=== PATIENT | male | born 1995 | race Caucasian/White ===

== ENCOUNTER 2023-12-22 12:41 | Emergency (ER) | payer OTHER ==
--- NOTE | 2023-12-22 12:54 | ED ---
Male Urogenital HPI - General Stated complaint: STD testing Time Seen by Provider: 12/22/23 12:53 Source: patient, RN notes reviewed Mode of arrival: ambulatory Limitations: no limitations - History of Present Illness Initial comments: Patient is a 28-year-old male presented to ER with chief complaint of STD exposure. Patient states he was treated for syphilis in May and believes he has it again. He states he has been having recent headaches and believes he has a rash on his back. Denies any fevers, chills, night sweats, chest pain, shortness of breath, urinary complaints, penile discharge. - Related Data Allergies Allergy/AdvReac Type Severity Reaction Status Date / Time No Known Allergies Allergy Verified 12/22/23 13:59 Review of Systems ROS Statement: Those systems with pertinent positive or pertinent negative responses have been documented in the HPI. ROS Other: All systems not noted in ROS Statement are negative. General Exam - General Exam Comments Initial Comments: Visual Physical Exam Vital signs reviewed General: Well-appearing, nontoxic, no acute distress. Head: Normocephalic, atraumatic Eyes: PERRLA, EOMI ENT: Airway patent Chest: Nonlabored breathing Skin: No visual rash, normal skin tone Neuro: Alert and oriented 3 Musculoskeletal: No gross abnormalities General appearance: alert, in no apparent distress Head exam: Present: atraumatic, normocephalic, normal inspection Eye exam: Present: normal appearance, PERRL, EOMI. Absent: scleral icterus, conjunctival injection, periorbital swelling Respiratory exam: Present: normal lung sounds bilaterally. Absent: respiratory distress, wheezes, rales, rhonchi, stridor Cardiovascular Exam: Present: regular rate, normal rhythm, normal heart sounds. Absent: systolic murmur, diastolic murmur, rubs, gallop, clicks Neurological exam: Present: alert, oriented X3, CN II-XII intact Psychiatric exam: Present: normal affect, normal mood Skin exam: Present: warm, dry, intact, normal color. Absent: rash Course Vital Signs 12/22/23 12/22/23 13:55 14:57 Temperature 98.8 F 98.1 F Pulse Rate 93 90 Respiratory 18 18 Rate Blood Pressure 135/85 130/82 O2 Sat by Pulse 96 97 Oximetry Medical Decision Making - Medical Decision Making I performed the quick note portion of this chart. Electronically signed by Carlitos Guerra PA-C Was pt. sent in by a medical professional or institution ([facility] Thapa, HOME EXTENSION AGENT, urgent care, hospital, or halfway...) When possible be specific @ -No Did you speak to anyone other than the patient for history (EMS, parent, family, police, friend...)? What history was obtained from this source @ -No Did you review nursing and triage notes (agree or disagree)? Why? @ -I reviewed and agree with nursing and triage notes Were old charts reviewed (outside hosp., previous admission, EMS record, old EKG, old radiological studies, urgent care reports/EKG's, halfway records)? Report findings @ -No old charts were reviewed Differential Diagnosis (chest pain, altered mental status, abdominal pain women, abdominal pain men, vaginal bleeding, weakness, fever, dyspnea, syncope, headache, dizziness, GI bleed, back pain, seizure, CVA, palpatations, mental health, musculoskeletal)? @ -Chlamydia, gonorrhea, trichomonas, bacterial vaginosis, syphilis, HPV this list number to be all-inclusive EKG interpreted by me (3pts min.). @ -None X-rays interpreted by me (1pt min.). @ -None done CT interpreted by me (1pt min.). @ -None done U/S interpreted by me (1pt. min.). @ -None done What testing was considered but not performed or refused? (CT, X-rays, U/S, labs)? Why? @ -None What meds were considered but not given or refused? Why? @ -None Did you discuss the management of the patient with other professionals (professionals i.e. CHAR Thapa, HOME EXTENSION AGENT, lab, RT, psych nurse, manager social work, mash filter press operator, teacher, public health officer, social work case manager)? Give summary @ -No Was smoking cessation discussed for >3mins.? @ -No Was critical care preformed (if so, how long)? @ -No Were there social determinants of health that impacted care today? How? (Homelessness, low income, unemployed, alcoholism, drug addiction, transportation, low edu. Level, literacy, decrease access to med. care, fdc, rehab)? @ -No Was there de-escalation of care discussed even if they declined (Discuss DNR or withdrawal of care, Hospice)? DNR status @ -No What co-morbidities impacted this encounter? (DM, HTN, Smoking, COPD, CAD, Cancer, CVA, ARF, Chemo, Hep., AIDS, mental health diagnosis, sleep apnea, morbid obesity)? @ -None Was patient admitted / discharged? Hospital course, mention meds given and route, prescriptions, significant lab abnormalities, going to OR and other pertinent info. @ -Discharge. Patient is a 28-year-old male presenting to the ER with chief complaint of STD exposure. History and physical exam completed. Vitals stable. Patient in no signs of acute distress. Nontoxic-appearing. Patient's lung sounds clear to auscultation bilaterally. Syphilis, gonorrhea, committee and trichomonas testing completed. Patient received IM penicillin for prophylactic treatment of syphilis. Return parameters discussed. Patient discharged stable condition with follow-up to PCP. Patient expressed understanding and agreement with care plan. Undiagnosed new problem with uncertain prognosis? @ -No Drug Therapy requiring intensive monitoring for toxicity (Heparin, Nitro, Insulin, Cardizem)? @ -No Were any procedures done? @ -No Diagnosis/symptom? @ -STD exposure Acute, or Chronic, or Acute on Chronic? @ -Acute Uncomplicated (without systemic symptoms) or Complicated (systemic symptoms)? @ -Uncomplicated Side effects of treatment? @ -No Exacerbation, Progression, or Severe Exacerbation? @ -No Poses a threat to life or bodily function? How? (Chest pain, [place], [place], pneumonia, PE, COPD, DKA, ARF, appy, cholecystitis, CVA, Diverticulitis, Homicidal, Booth icidal, threat to staff... and all critical care pts) @ -Yes, untreated STDs can lead to infertility. Disposition Clinical Impression: STD exposure Disposition: HOME SELF-CARE Condition: Stable Instructions (If sedation given, give patient instructions): Sexually Transmitted Diseases (ED), Safe Sex Practices (ED) Additional Instructions: Results will be called to you. Please follow-up with PCP. Notify all partners. Return to the ER for any new or worsening symptoms. Is patient prescribed a controlled substance at d/c from ED?: No Referrals: Marci Lara DO [Primary Care Provider] - 1-2 days Time of Disposition: 13:34
[2023-12-22 14:15] VITALS: RESP 18
[2023-12-22] MEDS: PENICILLIN G BENZATHINE 1,200,000 UNIT/2 ML SYRINGE IM STA (14:50)
[2023-12-22 15:20] VITALS: BP 130/82; PULSE 90; TEMP 98.1
[2023-12-23 14:37] LABS: C. trachomatis,PCR Negative (Negative)
[2023-12-23 14:42] LABS: N. gonorrhoeae,PCR Negative (Negative)
== END 2023-12-22 14:58 | disposition home or self-care (01) ==
LOC: EC 12:41
DX: Z20.2 Contact with and (suspected) exposure to infections with a predominantly sexual mode of transmission (principal)
CPT/HCPCS: 87491; 87591; 99283; J0561

== ENCOUNTER 2024-01-26 19:59 | Emergency (ER) | payer OTHER ==
[2024-01-26 20:26] VITALS: TEMP 98.3
[2024-01-26] MEDS ORDERED: LORazepam 2 MG/ML INJ IV PRN ×2 (20:45)
[2024-01-26] MEDS: LORazepam 2 MG/ML INJ IV PRN (20:58)
--- NOTE | 2024-01-26 20:59 | ED ---
Alcohol HPI - General Chief Complaint: Alcohol Stated Complaint: Alochol Detox Time Seen by Provider: 01/26/24 20:39 Source: patient Mode of arrival: ambulatory Limitations: no limitations - History of Present Illness Initial Comments: 28-year-old male with history of alcohol use disorder presenting with chief complaint of "I do not feel well". Patient normally drinks a fifth of liquor per day. His last drink was 2 hours ago. He admits to nausea, vomiting, headache, fatigue, body aches. Denies chest pain or difficulty breathing. He has some abdominal soreness. No fevers. - Related Data Previous Rx's Medication Instructions Recorded Ibuprofen [Motrin] 800 mg PO ONCE #1 tab 05/05/16 Ibuprofen [Motrin] 800 mg PO Q8HR PRN #20 tab 05/05/16 chlordiazePOXIDE HCl [Librium] 25 mg PO QID #20 capsule 05/05/16 Allergies Allergy/AdvReac Type Severity Reaction Status Date / Time No Known Allergies Allergy Verified 01/26/24 20:19 Review of Systems ROS Statement: Those systems with pertinent positive or pertinent negative responses have been documented in the HPI. ROS Other: All systems not noted in ROS Statement are negative. Past Medical History Past Medical History: No Reported History Additional Past Medical History / Comment(s): ALCOHOL ABUSE History of Any Multi-Drug Resistant Organisms: MRSA Date of last positivie culture/infection: 2019 MDRO Source:: leg Past Surgical History: No Surgical Hx Reported Past Psychological History: Anxiety, No Psychological Hx Reported Smoking Status: Current every day smoker Past Alcohol Use History: Abuse, Daily, Heavy Past Drug Use History: Cocaine, Marijuana, Methamphetamine - Past Family History Mother Family Medical History: Hypertension General Exam Limitations: no limitations General appearance: alert, in no apparent distress Head exam: Present: atraumatic, normocephalic Eye exam: Present: normal appearance, EOMI Neck exam: Present: normal inspection Respiratory exam: Present: normal lung sounds bilaterally. Absent: respiratory distress, wheezes, rales, rhonchi, stridor Cardiovascular Exam: Present: normal rhythm, tachycardia, normal heart sounds. Absent: systolic murmur, diastolic murmur, rubs, gallop, clicks Neurological exam: Present: alert, oriented X3 Psychiatric exam: Present: normal affect, normal mood Skin exam: Present: warm, dry Course Vital Signs 01/26/24 01/26/24 01/26/24 20:17 21:08 21:56 Temperature 98.3 F Pulse Rate 124 H 117 H 109 H Respiratory 18 18 16 Rate Blood Pressure 149/97 146/109 163/108 O2 Sat by Pulse 96 96 98 Oximetry 01/26/24 23:50 Temperature Pulse Rate 92 Respiratory 18 Rate Blood Pressure 142/99 O2 Sat by Pulse 99 Oximetry Medical Decision Making - Medical Decision Making Was pt. sent in by a medical professional or institution (, CHAR, CHANGE ATTENDANT, urgent care, hospital, or group home...) When possible be specific @ -No Did you speak to anyone other than the patient for history (EMS, parent, family, police, friend...)? What history was obtained from this source @ -No Did you review nursing and triage notes (agree or disagree)? Why? @ -I reviewed and agree with nursing and triage notes Were old charts reviewed (outside hosp., previous admission, EMS record, old EKG, old radiological studies, urgent care reports/EKG's, group home records)? Report findings @ -No old charts were reviewed Differential Diagnosis (chest pain, altered mental status, abdominal pain women, abdominal pain men, vaginal bleeding, weakness, fever, dyspnea, syncope, headache, dizziness, GI bleed, back pain, seizure, CVA, palpatations, mental health, musculoskeletal)? @ -Differential includes alcohol withdrawal, COVID, influenza, other viral sy ndrome, this is not an all-inclusive list EKG interpreted by me (3pts min.). @ -As above X-rays interpreted by me (1pt min.). @ -None done CT interpreted by me (1pt min.). @ -None done U/S interpreted by me (1pt. min.). @ -None done What testing was considered but not performed or refused? (CT, X-rays, U/S, labs)? Why? @ -None What meds were considered but not given or refused? Why? @ -None Did you discuss the management of the patient with other professionals (professionals i.e. CHAR Thapa, CHANGE ATTENDANT, lab, RT, psych nurse, social worker clinical, echocardiographer, teacher, booking officer, shelter case manager)? Give summary @ -I spoke with Dr. Zapata who accepted admission Was smoking cessation discussed for >3mins.? @ -No Was critical care preformed (if so, how long)? @ -No Were there social determinants of health that impacted care today? How? (Homelessness, low income, unemployed, alcoholism, drug addiction, [place] sportation, low edu. Level, literacy, decrease access to med. care, alf, rehab)? @ -Alcohol use disorder Was there de-escalation of care discussed even if they declined (Discuss DNR or withdrawal of care, Hospice)? DNR status @ -No What co-morbidities impacted this encounter? (DM, HTN, Smoking, COPD, CAD, Cancer, CVA, ARF, Chemo, Hep., AIDS, mental health diagnosis, sleep apnea, morbid obesity)? @ -None Was patient admitted / discharged? Hospital course, mention meds given and route, prescriptions, significant lab abnormalities, going to OR and other pertinent info. @ -28-year-old male with history of alcohol use disorder presenting for alcohol withdrawal. Normally drinks a fifth of liquor per day. His last drink was about 2 hours prior to arrival. History and physical exam are conducted. Patient has a AST of 539 and ALT of 825, he also has a lipase of 342. This is to be expected with his chronic alcohol use. Urine toxicology positive for marijuana. He is negative for influenza, RSV, and COVID. I spoke with the patient regarding his goals. He tells me that he would like to go to rehab and it is his goal to stop drinking. He is placed on CIWA protocol. He will be adm itted. I discussed this case with my attending Dr. Smith I am told that later after admission the patient signed out AMA Undiagnosed new problem with uncertain prognosis? @ -No Drug Therapy requiring intensive monitoring for toxicity (Heparin, Nitro, Insulin, Cardizem)? @ -No Were any procedures done? @ -No Diagnosis/symptom? @ -Alcohol withdrawal Acute, or Chronic, or Acute on Chronic? @ -Acute Uncomplicated (without systemic symptoms) or Complicated (systemic symptoms)? @ -Complicated Side effects of treatment? @ -No Exacerbation, Progression, or Severe Exacerbation? @ -No Poses a threat to life or bodily function? How? (Chest pain, [place], [place], pneumonia, PE, COPD, DKA, ARF, appy, cholecystitis, CVA, Diverticulitis, Homicidal, Suicidal, threat to staff... and all critical care pts) @ -Potentially - Lab Data Result diagrams: 01/26/24 21:05 01/26/24 21:05 Lab Results 01/26/24 01/26/24 01/26/24 Range/Units 21:05 21:05 21:06 WBC 9.3 (3.8-10.6) k/uL RBC 5.50 (4.30-5.90) m/uL Hgb 18.2 H (13.0-17.5) gm/dL Hct 54.8 H (39.0-53.0) % MCV 99.6 (80.0-100.0) fL MCH 33.1 (25.0-35.0) pg MCHC 33.2 (31.0-37.0) g/dL RDW 12.8 (11.5-15.5) % Plt Count 222 (150-450) k/uL MPV 8.6 Neutrophils % 66 % Lymphocytes % 23 % Monocytes % 6 % Eosinophils % 0 % Basophils % 1 % Neutrophils # 6.2 (1.3-7.7) k/uL Lymphocytes # 2.1 (1.0-4.8) k/uL Monocytes # 0.6 (0-1.0) k/uL Eosinophils # 0.0 (0-0.7) k/uL Basophils # 0.1 (0-0.2) k/uL Sodium 141 (137-145) mmol/L Potassium 4.1 (3.5-5.1) mmol/L Chloride 102 (98-107) mmol/L Carbon Dioxide 22 (22-30) mmol/L Anion Gap 17 mmol/L BUN 5 L (9-20) mg/dL Creatinine 0.85 (0.66-1.25) mg/dL Est GFR (CKD-EPI)AfAm >90 (>60 ml/min/1.73 sqM) Est GFR (CKD-EPI)NonAf >90 (>60 ml/min/1.73 sqM) Glucose 176 H (74-99) mg/dL Calcium 9.7 (8.4-10.2) mg/dL Phosphorus 3.7 (2.5-4.5) mg/dL Magnesium 2.3 (1.6-2.3) mg/dL Total Bilirubin 0.7 (0.2-1.3) mg/dL AST 539 H (17-59) U/L ALT 825 H (4-49) U/L Alkaline Phosphatase 66 (38-126) U/L Total Protein 9.1 H (6.3-8.2) g/dL Albumin 5.4 H (3.5-5.0) g/dL Amylase 72 (30-110) U/L Lipase 342 H (23-300) U/L Urine Opiates Screen (NotDetected) Ur Oxycodone Screen (NotDetected) Urine Methadone Screen (NotDetected) Ur Barbiturates Screen (NotDetected) U Tricyclic Antidepress (NotDetected) Ur Phencyclidine Scrn (NotDetected) Ur Amphetamines Screen (NotDetected) U Methamphetamines Scrn (NotDetected) U Benzodiazepines Scrn (NotDetected) Urine Cocaine Screen (NotDetected) U Marijuana (THC) Screen (NotDetected) Influenza Type A (PCR) Not Detected (Not Detectd) Influenza Type B (PCR) Not Detected (Not Detectd) RSV (PCR) Not Detected (Not Detectd) SARS-CoV-2 (PCR) Not Detected (Not Detectd) 01/26/24 Range/Units 21:53 WBC (3.8-10.6) k/uL RBC (4.30-5.90) m/uL Hgb (13.0-17.5) gm/dL Hct (39.0-53.0) % MCV (80.0-100.0) fL MCH (25.0-35.0) pg MCHC (31.0-37.0) g/dL RDW (11.5-15.5) % Plt Count (150-450) k/uL MPV Neutrophils % % Lymphocytes % % Monocytes % % Eosinophils % % Basophils % % Neutrophils # (1.3-7.7) k/uL Lymphocytes # (1.0-4.8) k/uL Monocytes # (0-1.0) k/uL Eosinophils # (0-0.7) k/uL Basophils # (0-0.2) k/uL Sodium (137-145) mmol/L Potassium (3.5-5.1) mmol/L Chloride (98-107) mmol/L Carbon Dioxide (22-30) mmol/L Anion Gap mmol/L BUN (9-20) mg/dL Creatinine (0.66-1.25) mg/dL Est GFR (CKD-EPI)AfAm (>60 ml/min/1.73 sqM) Est GFR (CKD-EPI)NonAf (>60 ml/min/1.73 sqM) Glucose (74-99) mg/dL Calcium (8.4-10.2) mg/dL Phosphorus (2.5-4.5) mg/dL Magnesium (1.6-2.3) mg/dL Total Bilirubin (0.2-1.3) mg/dL AST (17-59) U/L ALT (4-49) U/L Alkaline Phosphatase (38-126) U/L Total Protein (6.3-8.2) g/dL Albumin (3.5-5.0) g/dL Amylase (30-110) U/L Lipase (23-300) U/L Urine Opiates Screen Not Detected (NotDetected) Ur Oxycodone Screen Not Detected (NotDetected) Urine Methadone Screen Not Detected (NotDetected) Ur Barbiturates Screen Not Detected (NotDetected) U Tricyclic Antidepress Not Detected (NotDetected) Ur Phencyclidine Scrn Not Detected (NotDetected) Ur Amphetamines Screen Not Detected (NotDetected) U Methamphetamines Scrn Not Detected (NotDetected) U Benzodiazepines Scrn Not Detected (NotDetected) Urine Cocaine Screen Not Detected (NotDetected) U Marijuana (THC) Screen Detected H (NotDetected) Influenza Type A (PCR) (Not Detectd) Influenza Type B (PCR) (Not Detectd) RSV (PCR) (Not Detectd) SARS-CoV-2 (PCR) (Not Detectd) Disposition Clinical Impression: Alcohol withdrawal syndrome Disposition: ADMITTED IP TO THIS HOSP Condition: Fair
[2024-01-26] MEDS: KETOROLAC 15 MG/ML 1 ML VIAL IVP STA (21:00)
[2024-01-26] MEDS: SODIUM CHLORIDE 0.9% 1,000 ML IV STA (21:01)
[2024-01-26] MEDS: ONDANSETRON 4 MG/2 ML VIAL IVP STA (21:02)
[2024-01-26 21:34] LABS: Basophils # (A) 0.1 k/uL (0-0.2); Basophils % (A) 1 %; Eosinophils % (A) 0 %; HCT 54.8 % (39.0-53.0); HGB 18.2 gm/dL (13.0-17.5); Lymphocytes # (A) 2.1 k/uL (1.0-4.8); Lymphocytes % (A) 23 %; MCH 33.1 pg (25.0-35.0); MCHC 33.2 g/dL (31.0-37.0); MCV 99.6 fL (80.0-100.0); Mean Platelet Volume 8.6; Monocytes # (A) 0.6 k/uL (0-1.0); Monocytes % (A) 6 %; Neutrophils # (A) 6.2 k/uL (1.3-7.7); Neutrophils % (A) 66 %; Platelet Count 222 k/uL (150-450); RDW 12.8 % (11.5-15.5); WBC 9.3 k/uL (3.8-10.6)
[2024-01-26 22:07] LABS: AST 539 U/L (17-59); African American GFR (CKD) >90 (>60 ml/min/1.73 sqM); Albumin 5.4 g/dL (3.5-5.0); Alkaline Phosphatase 66 U/L (38-126); Amylase 72 U/L (30-110); Anion Gap 17 mmol/L; Blood Urea Nitrogen 5 mg/dL (9-20); Calcium 9.7 mg/dL (8.4-10.2); Carbon Dioxide 22 mmol/L (22-30); Chloride 102 mmol/L (98-107); Glucose 176 mg/dL (74-99); Lipase 342 U/L (23-300); Magnesium 2.3 mg/dL (1.6-2.3); Non-African American GFR(CKD) >90 (>60 ml/min/1.73 sqM); Phosphorus 3.7 mg/dL (2.5-4.5); Potassium 4.1 mmol/L (3.5-5.1); Sodium 141 mmol/L (137-145); Total Bilirubin 0.7 mg/dL (0.2-1.3); Total Protein 9.1 g/dL (6.3-8.2)
[2024-01-26 22:20] LABS: ALT 825 U/L (4-49)
[2024-01-26 22:32] LABS: Amphetamine Screen,Urine Not Detected (NotDetected); Barbiturate Screen,Urine Not Detected (NotDetected); Benzodiazepines Screen,Urine Not Detected (NotDetected); Cocaine Screen,Urine Not Detected (NotDetected); Methadone Screen, Urine Not Detected (NotDetected); Opiate Screen,Urine Not Detected (NotDetected); Oxycodone Screen, Urine Not Detected (NotDetected); Phencyclidine Screen,Urine Not Detected (NotDetected); Tricyclic Antidepressant,Urine Not Detected (NotDetected); Urn Cannabinoid Scrn Detected (NotDetected)
[2024-01-26] MEDS ORDERED: NALOXONE 0.4 MG/ML 1 ML VIAL IV PRN (23:11)
[2024-01-26] MEDS ORDERED: ONDANSETRON 4 MG/2 ML VIAL IVP PRN (23:11)
[2024-01-26] MEDS ORDERED: IBUPROFEN 400 MG TAB PO PRN (23:11)
[2024-01-26] MEDS ORDERED: KETOROLAC 15 MG/ML 1 ML VIAL IVP PRN (23:11)
[2024-01-26] MEDS: MORPHINE SULFATE 2 MG/ML SYRINGE IVP STA (23:14)
[2024-01-26] MEDS: SODIUM CHLORIDE 0.9% 1,000 ML IV SCH (23:30)
[2024-01-26] MEDS: ALPRAZolam 0.5 MG TAB PO STA (23:46)
[2024-01-27] MEDS ORDERED: NICOTINE 21MG/24HR PATCH TRANSDERM STA (00:03)
--- NOTE | 2024-01-27 00:06 | P.HPIM ---
History of Present Illness H&P Date: 01/26/24 Patient is a 28-year-old male with a PMH of EtOH abuse, hep C (chronic), syphilis status post treatment who presents to the emergency room with complaints of alcohol withdrawal. The patient reports that he has been trying to cut down on his alcohol consumption which is currently at a fifth of hard liquor daily as well as a case of beer. He reports a history of alcohol withdrawal seizures. Reports last drink was 2 hours prior to arrival at the emergency room. Currently reports feeling somewhat shaky. Denied experiencing chest discomfort, shortness of breath, fever, chills, cough, nausea, vomiting, abdominal pain, diarrhea. Laboratory evaluation in the emergency room revealed a lipase of 342, AST 539, ALT 25, urine toxicology positive for marijuana, and respiratory viral panel unremarkable. ED documentation reviewed and case discussed with ED provider. Review of systems: Pertinent positives and negatives as discussed in HPI, a complete review of systems was performed and all other systems are negative. Physical examination: Vital signs reviewed General: non toxic, no distress, appears at stated age, normal weight Derm: no unusual rashes/lesions, warm Head: atraumatic, normocephalic, symmetric Eyes: EOMI, no lid lag, anicteric sclera, pupils equal round reactive to light ENT: Nose and ears atraumatic Neck: No cervical lymphadenopathy, trachea midline, supple Mouth: no lip lesion, mucus membranes moist, tongue fasciculations noted Cardiovascular: S1S2 reg, no murmur, positive dorsalis pedis pulse bilateral, no edema Lungs: CTA bilateral, no rhonchi, no rales, no accessory muscle use Abdominal: soft, nontender to palpation, no guarding Ext: muscle strength 5 out of 5 in all 4 extremities grossly, no gross muscle atrophy, no contractures, Neuro: CN II-XI grossly intact, no gross focal neuro deficits, mild outstretched hand tremor Psych: Alert, oriented, appropriate affect Assessment: Alcohol withdrawal Hyperglycemia Transaminitis, likely due to ongoing alcohol abuse Marijuana abuse Chronic conditions: Chronic hep C Imaging: None performed Data Review: Laboratory evaluation in the emergency room revealed a lipase of 342, AST 539, ALT 25, urine toxicology positive for marijuana, and respiratory viral panel unremarkable. Plan: CIWA Protocol with Ativan Cardiac monitoring Check A1c Fall precautions Monitor electrolytes daily Continue with IV fluids with normal saline 75 cc/h Continue with thiamine Monitor LFTs Advised on the importance of cessation from alcohol and marijuana use Advised patient to follow-up with gastroenterology as an outpatient for hep C treatment options DVT prophylaxis: Lovenox subcu The patient is admitted with an anticipated greater than 2 midnight stay for evaluation of alcohol withdrawal CODE STATUS: Full Code Discussed with: Patient Anticipated discharge place: Home Past Medical History Past Medical History: No Reported History Additional Past Medical History / Comment(s): ALCOHOL ABUSE History of Any Multi-Drug Resistant Organisms: MRSA Date of last positivie culture/infection: 2019 MDRO Source:: leg Past Surgical History: No Surgical Hx Reported Past Psychological History: Anxiety, No Psychological Hx Reported Smoking Status: Current every day smoker Past Alcohol Use History: Abuse, Daily, Heavy Past Drug Use History: Cocaine, Marijuana, Methamphetamine - Past Family History Mother Family Medical History: Hypertension Medications and Allergies Home Medications Medication Instructions Recorded Confirmed Type Ibuprofen [Motrin] 800 mg PO ONCE #1 tab 05/05/16 Rx RX: Ibuprofen [Motrin] 800 mg PO Q8HR PRN #20 tab 05/05/16 Rx chlordiazePOXIDE HCl [Librium] 25 mg PO QID #20 capsule 05/05/16 Rx Allergies Allergy/AdvReac Type Severity Reaction Status Date / Time No Known Allergies Allergy Verified 01/26/24 20:19 Physical Exam Vitals: Vital Signs Temp Pulse Resp BP Pulse Ox 01/26/24 23:50 92 18 142/99 99 01/26/24 21:56 109 H 16 163/108 98 01/26/24 21:08 117 H 18 146/109 96 01/26/24 20:17 98.3 F 124 H 18 149/97 96 Intake and Output 01/26/24 01/26/24 01/27/24 14:59 22:59 06:59 Other: Weight 72.575 kg Results CBC & Chem 7: 01/26/24 21:05 01/26/24 21:05 Labs: Abnormal Lab Results - Last 24 Hours (Table) 01/26/24 01/26/24 01/26/24 Range/Units 21:05 21:05 21:53 Hgb 18.2 H (13.0-17.5) gm/dL Hct 54.8 H (39.0-53.0) % BUN 5 L (9-20) mg/dL Glucose 176 H (74-99) mg/dL AST 539 H (17-59) U/L ALT 825 H (4-49) U/L Total Protein 9.1 H (6.3-8.2) g/dL Albumin 5.4 H (3.5-5.0) g/dL Lipase 342 H (23-300) U/L U Marijuana (THC) Screen Detected H (NotDetected)
[2024-01-27 00:46] VITALS: BP 142/99; PULSE 92; RESP 18
--- NOTE | 2024-01-27 07:18 | P.DS ---
Providers Date of admission: 01/26/24 23:12 Expected date of discharge: 01/27/24 Attending physician: Ibeth Zapata MD Primary care physician: Marci Lara DO Hospital Course: Patient left AGAINST MEDICAL ADVICE and this is a summary of the care received during his hospital stay. Discharge Diagnosis: Alcohol withdrawal Possible seizure Alcoholic hepatitis Hyperglycemia Marijuana abuse Chronic Hep C Hospital Course: Patient is a 28-year-old male with chronic hep C, recent syphilis treatment, and EtOH dependency who presented to the emergency department with complaints of alcohol withdrawal. He reported a history of alcohol withdrawal seizures and states that his last drink was 2 hours prior to arrival at the emergency department and he was feeling somewhat shaky. On arrival to the ER he underwent an extensive evaluation. Initial vital signs showed a blood pressure of 149/97 and a pulse of 124. Initial laboratory analysis was remarkable for albumin 5.4, total protein 9.1, AST 539, ALT 825. Urine drug screen was positive for marijuana. In the emergency department he was given a dose of Ativan and morphine. Arrangements were made for admission for alcohol withdrawal with seizure. Shortly after admission patient was requesting to leave to smoke and nursing informed him that this was not possible and offered a nicotine patch. However patient stated that would not help and declined. He was charted as being alert and oriented x 3 and subsequently signed out AGAINST MEDICAL ADVICE. Patient left AGAINST MEDICAL ADVICE on 01/26/2024 I was not directly involved in the care of this patient and only constructed this summary of care after the patient left AGAINST MEDICAL ADVICE. This dictation was prepared using [employer] voice recognition software. Though every attempt is made to correct errors during dictation some may still exist. Patient Condition at Discharge: Fair Plan - Discharge Summary New Discharge Prescriptions: No Action RX: Ibuprofen [Motrin] 800 mg PO Q8HR PRN #20 tab PRN Reason: Pain chlordiazePOXIDE HCl [Librium] 25 mg PO QID #20 capsule Ibuprofen [Motrin] 800 mg PO ONCE #1 tab Discharge Medication List Ibuprofen [Motrin] 800 mg PO ONCE #1 tab 05/05/16 [Rx] RX: Ibuprofen [Motrin] 800 mg PO Q8HR PRN #20 tab 05/05/16 [Rx] chlordiazePOXIDE HCl [Librium] 25 mg PO QID #20 capsule 05/05/16 [Rx] Follow up Appointment(s)/Referral(s): Marci Lara DO [Primary Care Provider] - 1-2 days Discharge Disposition: LEFT AGAINST MEDICAL ADVICE
[2024-01-27] MEDS ORDERED: THIAMINE 100 MG TAB PO SCH (09:00)
[2024-01-27] MEDS ORDERED: ENOXAPARIN 40 MG/0.4 ML SYRINGE SQ SCH (09:00)
== END 2024-01-27 00:29 | disposition left against medical advice (07) ==
LOC: EC 19:59 → 4SSUR 23:12 → UNDOADMIN 23:12 → EC 01-27 00:29 → UNDODISIN 01-27 00:29
DX: F10.239 Alcohol dependence with withdrawal, unspecified (principal); R00.0 Tachycardia, unspecified; F17.200 Nicotine dependence, unspecified, uncomplicated; Z11.52 Encounter for screening for COVID-19
CPT/HCPCS: 99285; 96374; 96375 ×3; 96361 ×2; 36415; 80053; 82150; 83690; 83735; 84100; 85025; 80306; 87636; J2060; J2405; J2270; J1885

== ENCOUNTER → 2024-04-09 | Outpatient (CLI) | payer OTHER ==
[2024-04-09 14:22] LABS: Basophils # (A) 0.08 X 10*3/uL (0.00-0.10); Basophils % (A) 1.4 %; Eosinophils # (A) 0.15 X 10*3/uL (0.04-0.35); Eosinophils % (A) 2.7 %; HCT 46.1 % (39.6-50.0); HGB 15.9 g/dL (13.0-17.0); Lymphocytes # (A) 1.63 X 10*3/uL (0.90-5.00); Lymphocytes % (A) 29.3 %; MCH 33.5 pg (27.0-32.0); MCHC 34.5 g/dL (32.0-37.0); MCV 97.3 FL (80.0-97.0); Mean Platelet Volume 11.1 FL (9.5-12.2); Monocytes # (A) 0.69 X 10*3/uL (0.20-1.00); Monocytes % (A) 12.4 %; NRBC Per 100 WBC 0 X 10*3/uL (0.00-0.01); Neutrophils % (A) 53.8 %; Platelet Count 158 X 10*3/uL (140-440); RBC 4.74 X 10*6/uL (4.40-5.60); RDW 13.2 % (11.5-14.5); WBC 5.57 X 10*3/uL (4.50-10.00)
[2024-04-09 14:56] LABS: ALT 382 U/L (10-49); AST 228 U/L (14-35); Albumin 4.6 g/dL (3.8-4.9); Albumin/Globulin Ratio 1.77 Ratio (1.60-3.17); Alkaline Phosphatase 52 U/L (41-126); BUN/Creat Ratio 11.22 Ratio (12.00-20.00); Blood Urea Nitrogen 10.1 mg/dL (9.0-27.0); Calcium 9.1 mg/dL (8.7-10.3); Carbon Dioxide 21.6 mmol/L (21.6-31.8); Chloride 107 mmol/L (96-109); Globulin 2.6 g/dL (1.6-3.3); Glucose 85 mg/dL (70-110); Potassium 3.9 mmol/L (3.5-5.5); Sodium 142 mmol/L (135-145); Total Bilirubin 0.3 mg/dL (0.3-1.2); Total Protein 7.2 g/dL (6.2-8.2)
== END | disposition home or self-care (01) ==
LOC: LABWHC1 11:33
PROVIDERS: ATTEND Internal Medicine Gastroenterology
DX: B18.2 Chronic viral hepatitis C (principal)
CPT/HCPCS: 36415; 80053; 85025

== ENCOUNTER → 2024-05-12 | Outpatient (CLI) | payer OTHER ==
[2024-05-12 18:26] LABS: Basophils # (A) 0.06 X 10*3/uL (0.00-0.10); Eosinophils # (A) 0.06 X 10*3/uL (0.04-0.35); HCT 44.6 % (39.6-50.0); HGB 15.2 g/dL (13.0-17.0); MCH 33.6 pg (27.0-32.0); MCHC 34.1 g/dL (32.0-37.0); MCV 98.7 FL (80.0-97.0); Mean Platelet Volume 11.3 FL (9.5-12.2); Monocytes # (A) 0.62 X 10*3/uL (0.20-1.00); Monocytes % (A) 10.3 %; NRBC Per 100 WBC 0 X 10*3/uL (0.00-0.01); Neutrophils # (A) 3.74 X 10*3/uL (1.80-7.70); Neutrophils % (A) 62.4 %; Platelet Count 197 X 10*3/uL (140-440); RBC 4.52 X 10*6/uL (4.40-5.60); RDW 12.8 % (11.5-14.5)
[2024-05-12 19:07] LABS: Hepatitis B Surface Antigen Nonreactive (Nonreactive)
[2024-05-12 19:21] LABS: ALT 141 U/L (10-49); AST 80 U/L (14-35); Albumin 4.4 g/dL (3.8-4.9); Alkaline Phosphatase 46 U/L (41-126); Blood Urea Nitrogen 9.3 mg/dL (9.0-27.0); Carbon Dioxide 22.3 mmol/L (21.6-31.8); Chloride 107 mmol/L (96-109); Globulin 2.2 g/dL (1.6-3.3); Glucose 85 mg/dL (70-110); Potassium 4.2 mmol/L (3.5-5.5); Sodium 142 mmol/L (135-145); Total Bilirubin <0.2 mg/dL (0.3-1.2); Total Protein 6.6 g/dL (6.2-8.2)
== END | disposition home or self-care (01) ==
LOC: LABWHC1 11:43
PROVIDERS: ATTEND Internal Medicine Gastroenterology
DX: B18.2 Chronic viral hepatitis C (principal)
CPT/HCPCS: 36415; 80053; 85025; 86704; 87340; 87522

== ENCOUNTER 2024-12-21 01:02 | Emergency (ER) | payer OTHER ==
[2024-12-21 01:22] VITALS: RESP 18; TEMP 97.9
--- NOTE | 2024-12-21 01:37 | ED ---
Fall HPI - General Chief Complaint: Fall Stated Complaint: Fall- head injury Time Seen by Provider: 12/21/24 01:22 Source: patient, police Mode of arrival: ambulatory - History of Present Illness Initial Comments: 29-year-old male presenting for evaluation post fall. Patient is currently at the [facility]. He fell off of the top bunk bed in his sleep and onto the ground. This was about 4 to 5 feet. He did not wake up until he was on the ground. He does not take blood thinners. He is complaining of headache and neck pain. He is also having some chest discomfort with motion and deep breaths. He also complains of right wrist and knee pain. He is having some nausea with no vomiting. No vision or hearing changes. No numbness tingling or weakness. He is feeling a little dizzy. He was placed in a c-collar in triage. - Related Data Previous Rx's Medication Instructions Recorded Ibuprofen [Motrin] 800 mg PO ONCE #1 tab 05/05/16 Ibuprofen [Motrin] 800 mg PO Q8HR PRN #20 tab 05/05/16 chlordiazePOXIDE HCl [Librium] 25 mg PO QID #20 capsule 05/05/16 Allergies Allergy/AdvReac Type Severity Reaction Status Date / Time No Known Allergies Allergy Verified 12/21/24 01:22 Review of Systems ROS Statement: Those systems with pertinent positive or pertinent negative responses have been documented in the HPI. ROS Other: All systems not noted in ROS Statement are negative. Past Medical History Past Medical History: No Reported History Additional Past Medical History / Comment(s): ALCOHOL ABUSE History of Any Multi-Drug Resistant Organisms: MRSA Date of last positivie culture/infection: 2019 MDRO Source:: leg Past Surgical History: No Surgical Hx Reported Past Psychological History: Anxiety, No Psychological Hx Reported Smoking Status: Current every day smoker Past Alcohol Use History: Abuse, Daily, Heavy Past Drug Use History: Cocaine, Marijuana, Methamphetamine - Past Family History Mother Family Medical History: Hypertension General Exam Limitations: no limitations General appearance: alert, in no apparent distress Head exam: Present: normocephalic Expanded Head exam: Present: abrasion (Abrasion with dried blood to the left side of the scalp) Eye exam: Present: normal appearance, PERRL, EOMI. Absent: periorbital swelling Neck exam: Present: normal inspection Respiratory exam: Present: normal lung sounds bilaterally, chest wall tenderness. Absent: respiratory distress, wheezes, rales, rhonchi, stridor Cardiovascular Exam: Present: regular rate, normal rhythm, normal heart sounds. Absent: systolic murmur, diastolic murmur, rubs, gallop, clicks Right Hand Wrist exam: Present: normal inspection, tenderness. Absent: full ROM Right Knee exam: Present: full ROM, tenderness, abrasion Neurological exam: Present: alert, oriented X3 Expanded Eye Response: (4) open spontaneously Motor Response: (6) obeys commands Verbal Response: (5) oriented [place] Total: 15 Psychiatric exam: Present: normal affect, normal mood Skin exam: Present: warm, dry, normal color Course Vital Signs 12/21/24 12/21/24 01:17 03:42 Temperature 97.9 F Pulse Rate 73 75 Respiratory 18 18 Rate Blood Pressure 145/85 135/81 O2 Sat by Pulse 100 99 Oximetry Procedures - Orthopedic Splinting/Casting Injury #1 Side: right Upper Extremity Injury Location: wrist Upper Extremity Immobilizer: thumb spica Medical Decision Making - Medical Decision Making Was pt. sent in by a medical professional or institution (, PA, REFINERY OPERATOR HELPER, urgent care, hospital, or correction...) When possible be specific @ -No Did you speak to anyone other than the patient for history (EMS, parent, family, police, friend...)? What history was obtained from this source @ -chief medical officer at bedside Did you review nursing and triage notes (agree or disagree)? Why? @ -I reviewed and agree with nursing and triage notes Were old charts reviewed (outside hosp., previous admission, EMS record, old EKG, old radiological studies, urgent care reports/EKG's, correction records)? Report findings @ -No old charts were reviewed Differential Diagnosis (chest pain, altered mental status, abdominal pain women, abdominal pain men, vaginal bleeding, weakness, fever, dyspnea, syncope, headache, dizziness, GI bleed, back pain, seizure, CVA, palpatations, mental health, musculoskeletal)? @ -Differential Musculoskeletal Muscular strain, contusion, ligament sprain, fracture, arthritis, septic arth ritis, bursitis, cellulitis, muscle spasm, nerve compression, DVT, arterial occlusion, herpes zoster, electrolyte abnormality, tumor.... This is not meant to be in all inclusive list EKG interpreted by me (3pts min.). @ -As above X-rays interpreted by me (1pt min.). @ -No acute process seen on chest x-ray, right knee x-ray, right wrist x-ray CT interpreted by me (1pt min.). @ -CT shows no acute hemorrhage hydrocephalus or mass effect. No acute fracture or subluxation U/S interpreted by me (1pt. min.). @ -None done What testing was considered but not performed or refused? (CT, X-rays, U/S, labs)? Why? @ -None What meds were considered but not given or refused? Why? @ -None Did you discuss the management of the patient with other professionals (professionals i.e. , PA, REFINERY OPERATOR HELPER, lab, RT, psych nurse, mental health social worker, press pipe inspector, teacher, hospital security officer, leather case finisher)? Give summary @ -No Was smoking cessation discussed for >3mins.? @ -No Was critical care preformed (if so, how long)? @ -No Were there social determinants of health that impacted care today? How? (Homelessness, low income, unemployed, alcoholism, drug addiction, transportation, low edu. Level, literacy, decrease access to med. care, chcf, rehab)? @ -No Was there de-escalation of care discussed even if they declined (Discuss DNR or withdrawal of care, Hospice)? DNR status @ -No What co-morbidities impacted this encounter? (DM, HTN, Smoking, COPD, CAD, Cancer, CVA, ARF, Chemo, Hep., AIDS, mental health diagnosis, sleep apnea, morbid obesity)? @ -None Was patient admitted / discharged? Hospital course, mention meds given and route, prescriptions, significant lab abnormalities, going to OR and other pertinent info. @ -29-year-old male brought in from [facility] after falling off of the top bunk in his sleep tonight. No blood thinners. He does admit to head injury. He was placed in a c-collar in triage. He is complaining of left-sided chest pain as well as right-sided knee and wrist pain. On exam heart and lungs are clear to auscultation. He does have some anatomical snuffbox tenderness. Does have some scratches on his knee. X-rays show no acute process. CT of the brain and neck show no acute process. Patient is placed in a thumb spica splint and instructed to follow-up with orthopedics, follow-up instructions are provided to the police sergeant precinct accompanying him. Follow-up with PCP. Report back to ER with any new or worsening symptoms. Discussed return parameters and answered all questions. Patient conveyed verbal understanding and agreed to the plan. I discussed this case in detail with my attending Dr. Faustin Undiagnosed new problem with uncertain prognosis? @ -No Drug Therapy requiring intensive monitoring for toxicity (Heparin, Nitro, Insulin, Cardizem)? @ -No Were any procedures done? @ -Thumb spica splint applied Diagnosis/symptom? @ -Fall, head injury, tenderness of the anatomical snuffbox Acute, or Chronic, or Acute on Chronic? @ -Acute Uncomplicated (without systemic symptoms) or Complicated (systemic symptoms)? @ -Uncomplicated Side effects of treatment? @ -No Exacerbation, Progression, or Severe Exacerbation? @ -No Poses a threat to life or bodily function? How? (Chest pain, [place], [place], pneumonia, PE, COPD, DKA, ARF, appy, cholecystitis, CVA, Diverticulitis, Homicidal, Suicidal, threat to staff... and all critical care pts) @ -Potential if he does not follow-up with orthopedics Disposition Clinical Impression: Fall, Head injury, Tenderness of anatomical snuffbox Disposition: HOME SELF-CARE Condition: Good Instructions (If sedation given, give patient instructions): Head Injury (ED), Scaphoid Fracture (ED) Additional Instructions: Follow-up with orthopedics. Report back to ER with any new or worsening symptoms. Motrin and Tylenol as needed for pain control. Rest ice and elevate the hand. Keep the splint on until cleared by orthopedics. Is patient prescribed a controlled substance at d/c from ED?: No Referrals: Shay Ott MD [Primary Care Provider] - 1-2 days Mark Mckinney MD [Medical Doctor] - 1-2 days Time of Disposition: 03:32
--- NOTE | 2024-12-21 02:11 | CT ---
EXAM: CT Head Without Intravenous Contrast CLINICAL HISTORY: ITS.REASON CT Reason: fall TECHNIQUE: Axial computed tomography images of the head/brain without intravenous contrast. CTDI is 45.2 mGy and DLP is 1059 mGy-cm. This CT exam was performed using one or more of the following dose reduction techniques: automated exposure control, adjustment of the mA and/or kV according to patient size, and/or use of iterative reconstruction technique. COMPARISON: No relevant prior studies available. FINDINGS: Brain: No hemorrhage or mass effect. Ventricles: No hydrocephalus. Bones/joints: Unremarkable. Soft tissues: Unremarkable. Sinuses: No air fluid level. Mastoid air cells: Clear. IMPRESSION: No acute hemorrhage, hydrocephalus, or mass effect. EXAM: CT Cervical Spine Without Intravenous Contrast CLINICAL HISTORY: ITS.REASON CT Reason: fall TECHNIQUE: Axial computed tomography images of the cervical spine without intravenous contrast. CTDI is 10.6 mGy and DLP is 332.4 mGy-cm. This CT exam was performed using one or more of the following dose reduction techniques: automated exposure control, adjustment of the mA and/or kV according to patient size, and/or use of iterative reconstruction technique. COMPARISON: No relevant prior studies available. FINDINGS: Vertebrae: No acute fracture. Discs/spinal canal/neural foramina: Minimal degenerative changes. Soft tissues: No prevertebral swelling. IMPRESSION: No acute fracture or subluxation.
[2024-12-21] MEDS: ACETAMINOPHEN TAB 325 MG TAB PO STA (02:57)
[2024-12-21] MEDS: IBUPROFEN 600 MG TAB PO STA (02:58)
--- NOTE | 2024-12-21 03:08 | XR ---
EXAM: XR Right Wrist Complete, 3 or More Views CLINICAL HISTORY: ITS.REASON XR Reason: fall TECHNIQUE: Frontal, lateral and oblique views of the right wrist. COMPARISON: No relevant prior studies available. FINDINGS: Bones/joints: Unremarkable. No acute fracture. No dislocation. Soft tissues: Unremarkable. No radiopaque foreign body. IMPRESSION: Normal right wrist x-rays.
--- NOTE | 2024-12-21 03:08 | XR ---
EXAM: XR Right Knee, 3 Views CLINICAL HISTORY: ITS.REASON XR Reason: fall TECHNIQUE: Three views of the right knee. COMPARISON: No relevant prior studies available. FINDINGS: Bones/joints: Unremarkable. No acute fracture. No dislocation. Soft tissues: Unremarkable. IMPRESSION: Normal right knee x-rays.
--- NOTE | 2024-12-21 03:08 | XR ---
EXAM: XR Chest, 2 Views CLINICAL HISTORY: ITS.REASON XR Reason: fall TECHNIQUE: Frontal and lateral views of the chest. COMPARISON: No relevant prior studies available. FINDINGS: Lungs: Unremarkable. No consolidation. Pleural space: Unremarkable. No pneumothorax. Heart: Unremarkable. No cardiomegaly. Mediastinum: Unremarkable. Bones/joints: Unremarkable. IMPRESSION: Normal chest x-rays.
[2024-12-21] MEDS: LIDOCAINE 4% PATCH TOPICAL ONE (03:38)
[2024-12-21 03:58] VITALS: BP 135/81; PULSE 75
== END 2024-12-21 03:42 | disposition home or self-care (01) ==
LOC: EC 01:02
DX: S09.90XA Unspecified injury of head, initial encounter (principal); M25.531 Pain in right wrist; F17.200 Nicotine dependence, unspecified, uncomplicated; W06.XXXA Fall from bed, initial encounter
CPT/HCPCS: 29125; 70450; 71046; 72125; 99284